=== PATIENT | female | born 1985 | race Asian ===

== ENCOUNTER 2017-11-29 04:42 | Emergency (ER) | payer MEDICAID, OTHER ==
[~2017-11-29] VITALS: Ht 160 cm; Wt 59.0 kg
[2017-11-29] MEDS ORDERED: MIRTAZAPINE30 MG ORAL (04:48)
[2017-11-29] MEDS ORDERED: PRILOSEC OTC20 MG ORAL (04:48)
[2017-11-29] MEDS ORDERED: LORAZEPAM1 MG ORAL (04:48)
[2017-11-29] MEDS ORDERED: ZOLPIDEM TARTRA10 MG ORAL (04:48)
[2017-11-29 05:00] VITALS: BP 133/85
[2017-11-29] MEDS ORDERED: LORazepam Inj 2mg/ml 1ml IV ONE ×2 (05:00→06:45)
--- NOTE | 2017-11-29 05:01 | Emergency Room Report ---
History of Present Illness General Chief Complaint: Generalized Weakness Source: Patient, EMS Present Illness HPI Is a 31-year-old Amharic female with a history of insomnia and anxiety. She presents with an altered mental status. She called 911 because she felt weak. Also said that her face is paralyzed and can't move. She said she is out of her Ativan for 2 days. She claimed that she take 2 mg twice a day and her doctor decreased it down to 1 mg twice a day. She is also out of her Ambien. She denies suicidal thoughts or homicidal thought. Denies any drug use. Has been eating or drinking much. Because of the twitching and tightness of her face, possible dystonic reaction. Allergies: Coded Allergies: No Known Allergies (Unverified , 11/29/17) Patient History Past Medical History: see triage record, old chart reviewed, psych hx Past Surgical History: other Pertinent Family History: none Social History: Denies: smoking Last Menstrual Period: unk Now: No Immunizations: other Reviewed Nursing Documentation: PMH: Agreed; PSxH: Agreed Review of Systems Constitutional: Reports: weakness Eye: Denies: eye pain, blurred vision ENT: Denies: ear pain, nose congestion, throat swelling Respiratory: Denies: cough, shortness of breath Cardiovascular: Denies: chest pain, palpitations Gastrointestinal: Denies: abdominal pain, diarrhea, nausea, vomiting Musculoskeletal: Denies: back pain, joint pain Skin: Denies: rash Neurological: Denies: headache, numbness Endocrine: Denies: increased thirst, increased urine Hematologic/Lymphatic: Denies: easy bruising All Other Systems: negative except mentioned in HPI Physical Exam Vital Signs Date Time Temp Pulse Resp B/P (MAP) Pulse Ox O2 Delivery O2 Flow Rate FiO2 11/29/17 04:29 97.9 155 16 154/93 98 Room Air 97.9 vitals with tachycardia. heart [id number] EP Interpretation: reviewed, normal General Appearance: well appearing, no apparent distress, alert Head: normocephalic, atraumatic Eyes: bilateral eye PERRL, bilateral eye EOMI ENT: hearing grossly normal, normal pharynx, dry mucus membranes Neck: full range of motion, supple, no meningismus Respiratory: chest non-tender, lungs clear, normal breath sounds Cardiovascular #1: regular rate, rhythm, no murmur, tachycardia Gastrointestinal: normal bowel sounds, non tender, no mass, no organomegaly, no bruit, non-distended Musculoskeletal: back normal, normal range of motion Neurologic: alert, oriented x3, other - grimacing of left facial muscle. Muscle twitching. Psychiatric: depressed affect, anxious Skin: warm/dry Medical Decision Making Diagnostic Impression: Primary Impression: Episode of generalized weakness Additional Impressions: Dehydration Benzodiazepine misuse ER Course The [employer] system, she has been receiving 1 mg Ativan No. 30 every month for about a year. She's also receiving 30 tablets of Ambien 10 mg monthly. Last refill was on November 20. No evidence of seizure, aneurysm, TIA or CVA. This appeared to be psychogenic in nature. Patient appear to be depressed and anxious. She is hyperventilating. Heart rate is down to 100. We'll have her follow-up with her primary care doctor for refills on her medication. Patient is better after dose of Ativan IV fluid. She said that she's been using her Ativan more because she's been under increased stress. No evidence of TIA or CVA. her for 5150. We'll discharge home. Last Vital Signs Date Time Temp Pulse Resp B/P (MAP) Pulse Ox O2 Delivery O2 Flow Rate FiO2 11/29/17 04:29 97.9 155 16 154/93 98 Room Air 97.9 Status: improved Disposition: HOME, SELF-CARE Condition: Stable Scripts Lorazepam* (ATIVAN*) 1 Mg Tablet 1 MG ORAL BID, #20 TAB Prov: EYAD FERNANDEZ M.D. 11/29/17 Additional Instructions: Follow-up with your in 2-3 days for refill. You may benefit from referral to see a psychologist or psychiatrist. Return if symptom worsen. EYAD FERNANDEZ M.D. November 29, 2017 05:01
[2017-11-29 05:29] LABS: APPEARANCE,URINE SLIGHTLY CLOUDY; BILIRUBIN, URINE NEGATIVE (NEGATIVE); GLUCOSE, URINE (UA) NEGATIVE (NEGATIVE); KETONES,URINE 4+ (NEGATIVE); LEUKOCYTE ESTERASE ,URINE NEGATIVE (NEGATIVE); NITRITE,URINE NEGATIVE (NEGATIVE); PH,URINE 5 (4.5-8.0); PROTEIN,URINE 2+ (NEGATIVE); UROBILINOGEN,URINE NORMAL MG/DL (0.0-1.0)
[2017-11-29 05:31] LABS: BASOPHILS % (AUTO) 0.4 % (0.0-2.0); COLOR,URINE YELLOW; EOSINOPHILS % (AUTO) 0.1 % (0.0-3.0); HEMATOCRIT 38.9 % (37.0-47.0); HEMOGLOBIN 13.2 G/DL (12.0-16.0); LYMPHOCYTES % (AUTO) 14.3 % (20.0-45.0); MEAN CORPUSCULAR VOLUME 96 FL (80-99); MONOCYTES % (AUTO) 3.7 % (1.0-10.0); NEUTROPHILS % (AUTO) 81.6 % (45.0-75.0); PLATELET COUNT 165 K/UL (150-450); RED BLOOD COUNT 4.04 M/UL (4.20-5.40); RED CELL DISTRIBUTION WIDTH 11.2 % (11.6-14.8)
[2017-11-29 05:48] LABS: ANION GAP 20 mmol/L (5-15); BLOOD UREA NITROGEN 8 mg/dL (7-18); CALCIUM 8.8 MG/DL (8.5-10.1); CARBON DIOXIDE 17 MMOL/L (21-32); CHLORIDE 99 MMOL/L (98-107); CREATININE 0.7 MG/DL (0.55-1.30); POTASSIUM 3.3 MMOL/L (3.5-5.1); SODIUM 136 MMOL/L (136-145)
[2017-11-29 06:04] LABS: CKMB 1.1 NG/ML (0.0-3.6)
[2017-11-29] MEDS ORDERED: ATIVAN1 MG ORAL (06:10)
--- NOTE | 2017-11-29 06:16 | Diagnostic Imaging Report ---
EXAM: CT Head Without Intravenous Contrast. CLINICAL HISTORY: Altered mental status. TECHNIQUE: Axial computed tomography images of the head/brain without intravenous contrast. CTDI is 70.5 mGy and DLP is 1351 mGy-cm. One or more of the following dose reduction techniques were used: automated exposure control, adjustment of the mA and/or kV according to patient size, use of iterative reconstruction technique. COMPARISON: No relevant prior studies available. FINDINGS: Brain: Unremarkable. No hemorrhage. No significant white matter disease. No edema. Ventricles: Unremarkable. No ventriculomegaly. Bones: No acute fracture. Sinuses: Unremarkable as visualized. No acute sinusitis. Mastoid air cells: Unremarkable as visualized. No mastoid effusion. IMPRESSION: Normal head/brain.
[2017-11-29 07:40] VITALS: BP 125/82
[2017-11-29 07:42] VITALS: BP 125/82
== END 2017-11-29 07:43 | disposition home or self-care (01) ==
LOC: EDBD 04:42 → EMR 05:30
DX: R53.1 Weakness (principal); E86.0 Dehydration; F13.10 Sedative, hypnotic or anxiolytic abuse, uncomplicated; F41.9 Anxiety disorder, unspecified; G47.00 Insomnia, unspecified
CPT/HCPCS: 36415; 70450; 80048; 80307; 81001; 81025; 82550; 82553; 85025; 96374; 96375; 99284